=== PATIENT | female | born 1945 | race Two or more races ===

== ENCOUNTER → 2024-07-27 | Emergency (ER) | payer OTHER ==
[~2024-07-27] VITALS: Ht 152.4 cm; Wt 68.0 kg
[~2024-07-27] MED LIST: AMLODIPINE BESYL5 MG PO; AMOX-CLAV 500-1 EACH PO; ATORVASTATIN CA40 MG PO; CLONAZEPAM0.5 MG PO; GABAPENTIN300 M2 PO; HUMULIN 70100 UNIT/2 SQ; KETO10TA2 PO; KETOROLAC TROMETHAMINE 60 MG VIAL IM ONE; LEVOTHYROXINE50 MCG PO; PEPCID AC20 MG PO; VASOTEC20 MG PO
[2024-07-27 13:03] LABS: HEMATOCRIT 42.4 % (36.0-45.00); HEMOGLOBIN 14.2 g/dL (12.0-15.00); MEAN CELL VOLUME 92.2 fL (80.00-100.00); MEAN CORPUSCULAR HGB CONC 33.6 g/dl (32.0-36.0); PLATELET COUNT 180 K/uL (150-450); RED CELL DISTRIBUTION WIDTH 12.9 % (11.5-14.5)
[2024-07-27 13:16] LABS: INR 1.05; PARTIAL THROMBOPLASTIN TIME 29.1 SECONDS (22.0-34.0); PROTHROMBIN TIME 11.4 SECONDS (9.0-11.5)
[2024-07-27 14:14] LABS: ALBUMIN 3.5 gm/dL (3.4-5.0); BILIRUBIN TOTAL 0.56 mg/dL (0.3-1.2); CREATININE SERUM 0.68 mg/dL (0.55-1.02); GFR 83.68; GLOBULINA 3.3 G/DL (2.4-3.5); POTASSIUM 4.27 mEq/L (3.5-5.1); TOTAL PROTEIN 6.8 gm/dL (6.4-8.2)
[2024-07-27 14:35] LABS: PH,URINE 5.5 (5.0-8.0); URINE APPEARANCE Cloudy; URINE BILIRRUBIN Negative (NEGATIVE); URINE COLOR Yellow; URINE KETONE Negative (NEGATIVE); URINE LEUKOCYTE Moderate; URINE NITRATE Negative; URINE PROTEIN Trace (NEGATIVE)
[2024-07-27 14:39] LABS: URINE EPITHELIAL CELLS 1.4 uL (0.0-38.8); URINE RBC 11.6 uL (0.0-20.8); URINE WBC 1801.9 uL (0.0-23.2)
[2024-07-27 14:46] LABS: URINE BACTERIA > 9821.5 uL (0.0-1933); URINE BLOOD Trace; URINE CAST 0.14 uL (0.0-1.40); URINE GLUCOSE 500 MG/DL (NEGATIVE)
== END | disposition home or self-care (01) ==
LOC: ER 10:59
PROVIDERS: General Practice
DX: S32.038A Other fracture of third lumbar vertebra, initial encounter for closed fracture (principal); X58.XXXA Exposure to other specified factors, initial encounter; Y93.89 Activity, other specified; Y92.89 Other specified places as the place of occurrence of the external cause; Y99.8 Other external cause status; N39.0 Urinary tract infection, site not specified; I10 Essential (primary) hypertension; E11.9 Type 2 diabetes mellitus without complications; Z79.4 Long term (current) use of insulin; Z88.2 Allergy status to sulfonamides
CPT/HCPCS: 36415; 72131; 72170; 73551; 96372; 99284; J1885

== ENCOUNTER 2024-08-22 15:13 | Emergency (ER) | payer OTHER ==
[~2024-08-22] VITALS: Ht 152.4 cm; Wt 68.0 kg
[~2024-08-22 15:13] MED LIST changes: -KETOROLAC TROMETHAMINE 60 MG VIAL IM ONE
[2024-08-22] MEDS ORDERED: KETOROLAC TROMETHAMINE 60 MG VIAL IM STA (17:12)
[2024-08-22] MEDS ORDERED: DEXAMETHASONE SODIUM PHOSPHATE 4 MG/ML VIAL IM STA (17:13)
[2024-08-22] MEDS ORDERED: ACETAMINOPHEN 500 MG GEL..CAP PO STA (17:13)
[2024-08-22] MEDS ORDERED: ACETAMINOPHEN 500 MG GEL..CAP PO ONE (17:29)
[2024-08-22] MEDS ORDERED: DEXAMETHASONE SODIUM PHOSPHATE 4 MG/ML VIAL ONE (17:29)
[2024-08-22] MEDS ORDERED: KETOROLAC TROMETHAMINE 60 MG VIAL IM ONE (17:29)
== END 2024-08-22 17:53 | disposition home or self-care (01) ==
LOC: ER 15:15
DX: M54.42 Lumbago with sciatica, left side (principal); Z88.2 Allergy status to sulfonamides